=== PATIENT | female | born 1985 ===

== ENCOUNTER 2018-10-30 23:27 | Emergency (ER) | payer SELFPAY ==
[~2018-10-30] VITALS: Ht 175.3 cm; Wt 137.7 kg
[2018-10-30 23:36] VITALS: Ht 175.3 cm; Wt 137.7 kg
[2018-10-31] MEDS ORDERED: CLARITIN 10 MG10 MG PO (01:58)
[2018-10-31] MEDS ORDERED: DOXYCYCLINE HY100 M2 PO (01:58)
[2018-10-31] MEDS ORDERED: IBUPROFEN800 MG PO (01:58)
[2018-10-31 02:11] VITALS: BP 122/71
== END 2018-10-31 02:11 | disposition home or self-care (01) ==
LOC: D.ER 23:27 → EDBD 23:27 → D.ER 10-31 02:11
DX: J01.90 Acute sinusitis, unspecified (principal); F17.200 Nicotine dependence, unspecified, uncomplicated